=== PATIENT | female | born 1980 | race Caucasian/White ===

== ENCOUNTER 2017-06-19 15:21 | Emergency (ER) | payer OTHER ==
[2017-06-19 15:41] VITALS: BP 126/74; PULSE 119; RESP 18; TEMP 97.7
--- NOTE | 2017-06-19 15:57 | ED ---
Female Urogenital HPI - General Stated complaint: STD testing Time Seen by Provider: 06/19/17 15:27 Source: patient, RN notes reviewed Limitations: no limitations - History of Present Illness Initial comments: This is a pleasant 37-year-old female presents emergency department with concerns about the possibility of an STD. She states that her boyfriend may be cheating on her. She states that "if he is going to be a dirty fidencio I don't want waffle crotch." Patient states that both she and her boyfriend have a history of hepatitis C from previous IV drug abuse. Patient states that her boyfriend gave his ex-girlfriend syphilis. Patient denies any lesions or sores. Patient denies any current discharge. No fever or chills. - Related Data Home Medications Medication Instructions Recorded Confirmed No Known Home Medications [No 06/19/17 06/19/17 Known Home Medications] Allergies Allergy/AdvReac Type Severity Reaction Status Date / Time No Known Allergies Allergy Verified 06/19/17 15:48 Review of Systems ROS Statement: Those systems with pertinent positive or pertinent negative responses have been documented in the HPI. ROS Other: All systems not noted in ROS Statement are negative. Past Medical History Additional Past Medical History / Comment(s): psoriasis, legally blind left eye History of Any Multi-Drug Resistant Organisms: None Reported Past Surgical History: Tubal Ligation Additional Past Surgical History / Comment(s): eye sx. Past Psychological History: Bipolar Smoking Status: Current every day smoker Past Alcohol Use History: None Reported Past Drug Use History: IV Drug Use General Exam - General Exam Comments Initial Comments: Thin but healthy-appearing 37-year-old female General appearance: alert, in no apparent distress, anxious Head exam: Present: atraumatic, normocephalic, normal inspection Eye exam: Present: normal appearance, EOMI. Absent: scleral icterus, conjunctival injection, periorbital swelling ENT exam: Present: normal exam, mucous membranes moist Neck exam: Present: normal inspection. Absent: tenderness, meningismus, lymphadenopathy Respiratory exam: Present: normal lung sounds bilaterally. Absent: respiratory distress, wheezes, rales, rhonchi, stridor Cardiovascular Exam: Present: regular rate, normal rhythm, normal heart sounds. Absent: systolic murmur, diastolic murmur, rubs, gallop, clicks GI/Abdominal exam: Present: soft, normal bowel sounds. Absent: distended, tenderness, guarding, rebound, rigid External exam: Present: normal external exam. Absent: erythema, swelling, lesions, lacerations Speculum exam: Present: vaginal discharge, cervical discharge, other (White, homogenous vaginal discharge). Absent: normal speculum exam, erythema, vaginal bleeding, foreign body By manual exam: Present: normal by manual exam Extremities exam: Present: normal inspection, full ROM, normal capillary refill. Absent: tenderness, pedal edema, joint swelling, calf tenderness Back exam: Present: normal inspection Neurological exam: Present: alert, oriented X3, CN II-XII intact Psychiatric exam: Present: normal affect, normal mood Skin exam: Present: warm, dry, intact, normal color. Absent: rash Medical Decision Making - Medical Decision Making Patient apparently decided to leave AGAINST MEDICAL ADVICE after requesting to leave per the RN. I did not have a chance to go in and talk with the patient as she just got up and walked out of the room. Her testing was pending. Patient did not receive her dose of Rocephin or Zithromax. I was unable to give the patient follow-up with the primary care physician that I was going to give her. We did discuss this in the room. I was going to give her follow-up with Dr. Claros. . Disposition Clinical Impression: Screen for STD (sexually transmitted disease), Anxiety, Superficial bruising of lower leg Disposition: Left Against Medical Advice Additional Instructions: Patient left AGAINST MEDICAL ADVICE prior to having a chance to go speak with her about the risks Time of Disposition: 16:48
[2017-06-19] MEDS ORDERED: AZITHROMYCIN 500 MG TAB PO STA (15:59)
[2017-06-19] MEDS ORDERED: cefTRIAXone 250 MG VIAL IM STA (15:59)
[2017-06-19 16:34] LABS: CH 28.7; CHCM 33.2; HCT 37.8 % (34.0-46.0); HDW 2.29; HGB 12.4 gm/dL (11.4-16.0); MCH 28.4 pg (25.0-35.0); MCHC 32.7 g/dL (31.0-37.0); MCV 86.9 fL (80.0-100.0); Mean Platelet Volume 6.9; RBC 4.35 m/uL (3.80-5.40); RDW 13.1 % (11.5-15.5); WBC 8.2 k/uL (3.8-10.6)
[2017-06-19 16:38] LABS: Amorphous Sediment,Urine Occasional /hpf; Appearance,Urine Cloudy (Clear); Bilirubin,Urine Negative (Negative); Calcium Oxalate Crystals,Urine Moderate /hpf; Glucose,Urine (UA) Negative (Negative); Ketones,Urine Negative (Negative); Leukocyte Esterase,Urine Negative (Negative); Mucus,Urine Rare /hpf; Nitrite,Urine Negative (Negative); Particle Count 4557; Protein,Urine Negative (Negative); Specific Gravity,Urine 1.021 (1.001-1.035); Squamous Epithelial Cell,Urine 1 /hpf (0-4); UA Billing (MACRO vs. MICRO) MICRO; WBC,Urine 3 /hpf (0-5)
[2017-06-19 16:50] LABS: Partial Thromboplastin Time 22.1 sec (22.0-30.0); Prothrombin Time 10.1 sec (9.0-12.0)
== END 2017-06-19 16:30 | disposition left against medical advice (07) ==
LOC: EC 15:21
DX: Z11.3 Encounter for screening for infections with a predominantly sexual mode of transmission (principal); F41.9 Anxiety disorder, unspecified; S80.10XA Contusion of unspecified lower leg, initial encounter; F17.200 Nicotine dependence, unspecified, uncomplicated; Z98.51 Tubal ligation status; Z53.29 Procedure and treatment not carried out because of patient's decision for other reasons
CPT/HCPCS: 99283; 96372; 36415; 87591; 87491; 85027; 85610; 85730; 81001; 81025; 87808; 86780; 87070; J0696; 87205